=== PATIENT | male | born 1950 | race Caucasian/White ===

== ENCOUNTER 2023-01-18 11:07 | Outpatient (CLI) | payer MEDICARE, SELFPAY ==
[2023-01-18 12:00] LABS: Hematocrit 43.7 % (42.0-52.0); Hemoglobin 15.4 g/dL (14.0-18.0); Mean Corpuscular HGB Conc 35.2 g/dl (32-36); Mean Corpuscular Hemoglobin 32.2 pg (26-34); Mean Corpuscular Volume 91.4 fl (80-100); Mean Platelet Volume 9.2 fl (7.4-10.4); Platelet Count Result 251 k/mm3 (150-375); Red Blood Count 4.78 M/mm3 (4.6-6.20); Red Cell Distribution Width 13.4 % (11.5-14.5); White Blood Count 5.1 K/mm3 (4.5-10.0)
[2023-01-18 12:36] LABS: Appearance Urine Clear (Clear); Bilirubin Urine Negative (Negative); Blood Urine Negative (Negative); Color Urine Yellow (Yellow); Glucose Urine UA Negative (Negative); Ketones Urine Negative (Negative); Leukocyte Esterase Ur Negative LEU/UL (NEGATIVE); Nitrate Urine Negative (Negative); Protein Urine Negative (Negative); Specific Grav Ur 1.019 (1.001-1.035); pH Urine 7.5 (5.0-9.0)
[2023-01-18 12:48] LABS: Hemoglobin A1C 5.4 % (<5.7)
[2023-01-18 12:49] LABS: Add Urine Microscopic? NO
[2023-01-18 13:58] LABS: Alanine Aminotransferase 33 U/L (6-50); Albumin Level 4.4 g/dL (3.5-5.1); Alkaline Phosphatase 41 U/L (38-126); Anion Gap 6 mmol/L (8-16); Aspartate Amino Transferase 37 U/L (17-59); Bilirubin,Total 1.4 mg/dL (0.2-1.3); Blood Urea Nitrogen 20 mg/dL (9-20); Calcium 9.5 mg/dL (8.4-10.2); Carbon Dioxide 34 mmol/L (22-30); Chloride 97 mmol/L (98-107); Cholesterol 106 mg/dL (0-200); Estimated Glomerular Filt Rate > 60; Glucose 100 mg/dL (65-110); HDL Direct 31 mg/dL; Potassium 3.4 mmol/L (3.4-5.0); Sodium 137 mmol/L (137-145); Triglycerides 72 mg/dL (<150)
[2023-01-18 14:12] LABS: LDL Cholesterol Direct 59 mg/dL
[2023-01-18 14:29] LABS: Prostate Specific Antigen 0.6 ng/mL (< OR = 4.0); Thyroid Stimulating Hormone 0.735 uIU/mL (0.465-4.680)
== END 2023-01-18 11:08 | disposition home or self-care (01) ==
PROVIDERS: PCP Family Medicine; Visit Provider Family Medicine
DX: E78.5 Hyperlipidemia, unspecified (principal); I10 Essential (primary) hypertension; R35.1 Nocturia; R73.01 Impaired fasting glucose
CPT/HCPCS: 36415; 80053; 80061; 81003; 83036; 84153; 84443; 85027

== ENCOUNTER → 2023-01-24 11:43 | Outpatient (CLI) | payer MEDICARE, SELFPAY ==
--- NOTE | ~2023-01-24 | XR_ITS ---
Right Knee Technique: AP and lateral views were obtained. Clinical History: Pain Findings: No fracture or dislocation is seen. There is moderate degenerative change of the medial com partment. There is mild degenerative change at the lateral and patellofemoral compartments.. Chondroc alcinosis of the menisci noted. No joint effusion is seen. 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 Reviewed, dictated and finalized at location M. Impression: Tricompartmental osteoarthritis, as detailed above, worst in the medial compart ment. Chondrocalcinosis of the menisci.
== END ==
PROVIDERS: PCP Family Medicine; Visit Provider Family Medicine
DX: M17.11 Unilateral primary osteoarthritis, right knee (principal)
CPT/HCPCS: 73560

== ENCOUNTER 2024-01-26 07:50 | Outpatient (CLI) | payer MEDICARE, SELFPAY ==
[2024-01-26 08:35] LABS: Appearance Urine Clear (Clear); Bilirubin Urine Negative (Negative); Blood Urine Negative (Negative); Color Urine Yellow (Yellow); Glucose Urine UA Negative (Negative); Ketones Urine Negative (Negative); Leukocyte Esterase Ur Negative LEU/UL (Negative); Nitrate Urine Negative (Negative); Protein Urine Negative (Negative); Specific Grav Ur 1.016 (1.001-1.035); pH Urine 6.5 (5.0-9.0)
[2024-01-26 08:35] LABS: Hematocrit 45.1 % (42.0-52.0); Hemoglobin 16.3 g/dL (14.0-18.0); Mean Corpuscular HGB Conc 36.1 g/dl (32-36); Mean Corpuscular Hemoglobin 32.8 pg (26-34); Mean Corpuscular Volume 90.7 fl (80-100); Mean Platelet Volume 9.6 fl (7.4-10.4); Platelet Count Result 250 k/mm3 (150-375); Red Blood Count 4.97 M/mm3 (4.6-6.20); Red Cell Distribution Width 13.5 % (11.5-14.5); White Blood Count 5.5 K/mm3 (4.5-10.0)
[2024-01-26 08:36] LABS: Add Urine Microscopic? NO
[2024-01-26 08:43] LABS: Alanine Aminotransferase 31 U/L (6-50); Albumin Level 4.5 g/dL (3.5-5.1); Alkaline Phosphatase 47 U/L (38-126); Anion Gap 8 mmol/L (4-12); Aspartate Amino Transferase 33 U/L (17-59); Bilirubin,Total 1.3 mg/dL (0.2-1.3); Blood Urea Nitrogen 16 mg/dL (9-20); Calcium 9.5 mg/dL (8.4-10.2); Carbon Dioxide 29 mmol/L (22-30); Chloride 98 mmol/L (98-107); Cholesterol 116 mg/dL (0-200); Estimated Glomerular Filt Rate > 60; Glucose 99 mg/dL (65-110); HDL Direct 33 mg/dL; Potassium 3.2 mmol/L (3.4-5.0); Sodium 135 mmol/L (137-145); Triglycerides 106 mg/dL (<150)
[2024-01-26 08:55] LABS: LDL Cholesterol Direct 70 mg/dL
== END 2024-01-26 07:51 | disposition home or self-care (01) ==
PROVIDERS: PCP Family Medicine; Visit Provider Family Medicine
DX: E78.5 Hyperlipidemia, unspecified (principal); I10 Essential (primary) hypertension; R35.1 Nocturia
CPT/HCPCS: 36415; 80053; 80061; 81003; 84443; 85027

== ENCOUNTER 2024-10-01 09:54 | Outpatient (CLI) | payer MEDICARE, SELFPAY ==
[2024-10-01 12:35] LABS: Alanine Aminotransferase 34 U/L (6-50); Albumin Level 3.9 g/dL (3.5-5.1); Alkaline Phosphatase 46 U/L (38-126); Anion Gap 8 mmol/L (4-12); Aspartate Amino Transferase 34 U/L (17-59); Bilirubin,Total 0.9 mg/dL (0.2-1.3); Blood Urea Nitrogen 20 mg/dL (9-20); Calcium 9.5 mg/dL (8.4-10.2); Carbon Dioxide 32 mmol/L (22-30); Chloride 96 mmol/L (98-107); Estimated Glomerular Filt Rate > 60; Glucose 102 mg/dL (65-110); Potassium 3.6 mmol/L (3.4-5.0); Sodium 136 mmol/L (137-145)
--- OUTSIDE RECORDS SUMMARY | 2024-10-03 17:07 | XMS_ITS | Clinical Summary ---
Author Organization [facility] Address [address] [place] [address] Care Team Providers Care Company Controller Name Role Phone Unavailable Primary Care Provider Unavailabl e Source Comments [facility],non-owned Affiliates and Associated Physician Practices is amultiple site organization consisting of ambulatory clinics and hospital sitesin [place], [place], [place] and [place]. This disclosure is being madepursuant to the Care Everywhere program and may not contain all information available regarding this patient. Last updated 18.[facility] Family History Medical History Relation Name Comments Cancer Brother colon; Status: Relation Name Status Comments Brother Social History Tobacco Use Types Packs/Day Years Used Date Smoking Tobacco: Former Alcohol Use Standard Drinks/Week Comments Yes 0 (1 standard drink = 0.6 oz pur e alcohol) Sex and Gender Information Value Date Recorded Sex Assigned at Not on file Gender Identity Not on file Sexual Orientation Not on file Last Filed Vital Signs Vital Sign Reading Time Taken Comments Blood Pressure 146/89 03/26/2013 5:04 PM CDT Pulse 58 03/26/2013 5:04 PM CDT Temperature - - Respiratory Rate - - Oxygen Saturation 95% 03/26/2013 5:04 PM CDT Inhaled Oxygen Concentration - - Weight 83.9 kg (185 lb) 03/26/2013 8:52 AM CDT Height 180.3 cm (5' 11 ) 03/26/2013 8:52 AM CDT Body Mass Index 25.8 03/26/2013 8:52 AM CDT Plan of Treatment Health Maintenance Due Date Last Done Comments HEPATITIS C SCREENING 12/28/1965 DTAP/TDAP/TD VACCINES (1 - Tdap) 01/01/1967 PNEUMOCOCCAL VACCINE 50+ (1 of 1 - PCV) 01/01/1998 ZOSTER VACCINE (1 of 2) 01/01/1998 Respiratory Syncytial Virus (RSV) Vaccine Pt: or over 60 yrs (1 - 1-dose 75+ series) 01/01/2023 COVID-19 VACCINE (2023-2 5 season) 2024 INFLUENZA VACCINE (#1) 2024 DEPRESSION SCREENING 09/11/2024 MEDICARE AWV ? CALENDAR YEAR 2024 HEPATITIS B VACCINE Aged Out No longe r eligible based on patient's age to complete this topic HIB VACCINE Aged Out No longer eligi ble based on patient's age to complete this topic HPV VACCINE Aged Out No longer eligi ble based on patient's age to complete this topic MENINGOCOCCAL (Group B) VACCINE Aged Out No longer eligible based on patient's age to complete this topic MENINGOCOCCAL VACCINE Aged Out No luis armando temo eligible based on patient's age to complete this topic Timbo Crespo Personal/Famil y Self 1950 [address] [place] [id number]
--- OUTSIDE RECORDS SUMMARY | 2024-10-03 17:07 | XMS_ITS | Patient Health Summary ---
Author Organization [facility] Address [address] [place] [address] Care Team Providers Care Administrative Dietitian Name Role Phone Unavailable Primary Care Provider Unavailabl e Note from [facility],non-owned Affiliates and Associated Physician Practices is amultiple site organization consisting of ambulatory clinics and hospital sitesin [place], [place], [place] and [place]. This disclosure is being madepursuant to the Care Everywhere program and may not contain all information available regarding this patient. Last updated 18.[facility] [employer] Social History Tobacco Use Types Packs/Day Years [...] Mass Index 25.8 03/26/2013 8:52 AM CDT Procedures * DERMATOPATHOLOGY(Performed 01/16/2024) * DERMATOPATHOLOGY(Performed 07/06/2018) * DERMATOPATHOLOGY(Performed 09/23/2015) * DERMATOPATHOLOGY(Performed 01/04/2013) * DERMATOPATHOLOGY(Performed 03/21/2012) * DERMATOPATHOLOGY(Performed 01/12/2011) Results * DERMATOPATHOLOGY (01/16/2024 12:00 AM CDT) Only the most recent of6 resultswithin the time period is included. Case Report Dermatopathology Report ? Case: [id number] ? Authorizing Provider: ??Timbo Sanchez MD ?Collected: ? 01/16/2024 12:00 AM ? Ordering Location: ? [facility] - ??Received: ?01/18/2024 10:44 AM ? DermPath Lab ? Pathologist: ? Martha Griffith MD ? Specimens: ?? A) - Skin, left lateral frontal scalp ? B) - Skin, anterior to left sideburn ? C) - Skin, left mid exterior forearm ? 2:12 PM T DERMATOPATHOLOGY LABORATORY Final Diagnosis Specimen A. SKIN, left lateral frontal scalp: BASAL CELL CARCINOMA, NODULAR TYPE (C44.41) Specimen B. 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 SKIN, left mid exterior forearm: BENIGN VERRUCOUS KERATOSIS, INFLAMED (L82.1) 2:12 PM [facility] DERMATOPATHOLOGY LABORATORY Clinical History A: r/o SCC, BCC, SCCIS B-C: r/o SCC, SCCIS 2:12 PM [facility] DERMATOPATHOLOGY LABORATORY Gross Description Specimen A: Received is one formalin filled container labeled with the patient's name and designated left lateral frontal scalp. The specimen consists of a shave biopsy measuring 8x8x1 mm. Jar 0. Specimen B: Received is one formalin filled container labeled with the patient's name and designated anterior to left sideburn. The specimen consists of a shave biopsy measuring 6x5x1 mm. Jar 0. Specimen C: Received is one formalin filled container labeled with the patient's name and designated left mid exterior forearm. The specimen consists of a shave biopsy measuring 10x8x3 mm. Jar 0. 2:12 PM [facility] DERMATOPATHOLOGY LABORATORY Microscopic Description Specimen A. SKIN, left lateral frontal scalp: Within the dermis there are aggregates of basaloid cells with a high nuclear to cytoplasmic ratio and peripheral palisading. Specimen B. SKIN, anterior to left sideburn: There is focal parakeratosis. The lower half of the epidermis shows disorderly maturation of keratinocytes with nuclear pleomorphism. Focally there is a suprabasilar cleft with acantholytic cells. Specimen C. SKIN, left mid exterior forearm: Sections show hyperkeratosis, papillomatosis, hypergranulosis, and acanthosis. Inflammatory cells are present within the dermis. These histological findings can be seen in a verruca vulgaris or a seborrheic keratosis. 2:12 PM CDT DERMATOPATHOLOGY LABORATORY Disclaimer An external and internal positive and negative controls are appropriate for the histochemical, immunohistochemical and immunofluorescence stain(s) in this case (if any), except where stated explicitly. The performance characteristics of the stain(s) cited in this report were developed and its performance characteristic determined by the Dermatopathology Laboratory at [facility], directed by Dr. Tiki Griffith. These tests need not be, and therefore are not, approved by the [place] Food and Drug Administration. The tests are used for clinical purposes. Billing Codes Specimen Charges Stain Charges 51282 18345 44834 1 1 1 4 2:12 PM CDT DERMATOPATHOLOGY LABORATORY Embedded Images 2:12 PM CDT DERMATOPATHOLOGY LABORATORY Pathology/Cytology TISSUE SPECIMEN FROM SKIN / Unknown 01/16/2024 01/18/2024 10:44 AM CDT Miscellaneous samples (specimen) TISSUE SPECIMEN FROM SKIN / Unknown 01/16/2024 01/18/2024 10:44 AM CDT Miscellaneous samples (specimen) TISSUE SPECIMEN FROM SKIN / Unknown 01/16/2024 01/18/2024 10:44 AM CDT Timbo Sanchez MD LAB - PATHOLOGY/CYTO LOGY ORDERABLES DERMATOPATHOLOGY LABORATORY [facility] - Department of Dermatology [address], [address] [phone]
--- OUTSIDE RECORDS SUMMARY | 2024-10-03 17:07 | XMS_ITS | Encounter Summary ---
Author Organization [facility] Address [address] [facility] [place] [address] Care Team Providers Care Credit Cashier Name Role Phone Unavailable Primary Care Provider Unavailabl e Encounter Details Date Type Department Care Team (Late st Contact Info) Description 01/18/2024 Lab Requisition [facility] - DermPath Lab [address] [facility], [place] [address] Timbo Sanchez MD [address] [place] [address] Social History Tobacco Use Types Packs/Day Years Used Date Smoking Tobacco: Former Alcohol Use Standard Drinks/Week Comments Yes 0 (1 standard drink = 0.6 oz pur e alcohol) Sex and Gender Information Value Date Recorded Sex Assigned at Not on file Gender Identity Not on file Sexual Orientation Not on file documented as of this encounter Plan of Treatment Not on file documented as of this encounter Procedures Procedure Name Priority Date/Time Associated Diagnosis Comments DERMATOPATHOLOGY Routine 01/16/2024 12:0 0 AM CDT documented in this encounter Results * DERMATOPATHOLOGY (01/16/2024 12:00 AM CDT) Case Report Dermatopathology Report ? Case: [id number] ? Authorizing Provider: ??Timbo Sanchez MD ?Collected: ? 01/16/2024 12:00 AM ? Ordering Location: ? [facility] - ??Received: ?01/18/2024 10:44 AM ? DermPath Lab ? Pathologist: ? Martha Griffith MD ? Specimens: ?? A) - Skin, left lateral frontal scalp ? B) - Skin, anterior to left sideburn ? C) - Skin, left mid exterior forearm ? 4 2:12 PM CDT DERMATOPATHOLOGY LABORATORY Final Diagnosis Specimen A. SKIN, left lateral frontal scalp: BASAL CELL CARCINOMA, NODULAR TYPE (C44.41) Specimen B. 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 SKIN, left mid exterior forearm: BENIGN VERRUCOUS KERATOSIS, INFLAMED (L82.1) 2:12 PM [facility] Clinical History A: r/o SCC, BCC, SCCIS B-C: r/o SCC, SCCIS 2:12 PM [facility]ATORY Gross Description Specimen A: Received [...] measuring 10x8x3 mm. Jar 0. 2:12 PM T DERMATOPATHOLOGY LABORATORY Microscopic Description Specimen A. SKIN, [...] vulgaris or a seborrheic keratosis. 2:12 PM [facility]ATORY Disclaimer An external and internal positive and negative controls are appropriate for the histochemical, immunohistochemical and immunofluorescence stain(s) in this case (if any), except where stated explicitly. The performance characteristics of the stain(s) cited in this report were developed and its performance characteristic determined by the Dermatopathology Laboratory at [facility], directed by Dr. Tiki Griffith. These tests need not be, and therefore are not, approved by the [place] Food and Drug Administration. The tests are used for clinical purposes. Billing Codes Specimen Charges Stain Charges 59009 62139 98223 1 1 1 4 2:12 PM CDT [...] LAB - PATHOLOGY/CYTO LOGY ORDERABLES DERMATOPATHOLOGY LABORATORY [facility] - Department of Dermatology [address], [address] [phone] documented in this encounter Visit Diagnoses Not on filedocumented in this encounter
--- OUTSIDE RECORDS SUMMARY | 2024-10-03 17:07 | XMS_ITS | Encounter Summary ---
Author Organization [facility] Address [address] [facility] [place] [address] Care Team Providers Care Ticker Wirer Name Role Phone Unavailable Primary Care Provider Unavailabl e Encounter Details Date Type Department Care Team (Late st Contact Info) Description 07/09/2018 Lab Requisition [facility] D[facility] [address] [facility], [place] [address] Timbo Sanchez MD [address] [place] [address] Social History Tobacco Use Types [...] Priority Date/Time Associated Diagnosis Comments DERMATOPATHOLOGY Routine 07/06/2018 12:0 0 AM CDT documented in this encounter Results * DERMATOPATHOLOGY (07/06/2018 12:00 AM CDT) Case Report Dermatopathology Report ? Case: [id number] ? Authorizing Provider: ??Timbo Sanchez MD ?Collected: ? 07/06/2018 12:00 AM ? Pathologist: ? Martha Griffith MD ? Received: ?07/09/2018 12:05 PM ? Specimen: ?Skin, sacrum ? 2:04 PM CDT DERMATOPATHOLOGY LABORATORY Final Diagnosis Specimen A. SKIN, sacrum: LENTIGINOUS MELANOCYTIC NEVUS, JUNCTIONAL TYPE, IRRITATED (JUNCTIONAL MELANOCYTIC NEVUS WITH ARCHITECTURAL DISORDER) (D22.5) 2:04 PM CDT DERMATOPATHOLOGY LABORATORY Clinical History R/O dys nevus. 2:04 PM CDT DERMATOPATHOLOGY LABORATORY Gross Description Specimen A: Received is one formalin filled container labeled with the patient's name and designated sacrum. The specimen consists of a shave biopsy measuring [id number]. Jar 0. 2:04 PM CDT DERMATOPATHOLOGY LABORATORY Microscopic Description Specimen A. SKIN, sacrum: This is a junctional nevus. There is melanin pigment in the stratum corneum. There is architectural disorder characterized by a lentiginous proliferation of melanocytes between irregular nests of cells along the dermal-epidermal junction. There is underlying fibroplasia of the papillary dermis. (Junctional Joao's Nevus or Junctional Dysplastic Nevus) 2:04 PM CDT DERMATOPATHOLOGY LABORATORY Disclaimer An external and internal positive and negative controls are appropriate for the histochemical, immunohistochemical and immunofluorescence stain(s) in this case (if any), except where stated explicitly. The performance characteristics of the stain(s) cited in this report were developed and its performance characteristic determined by the Dermatopathology Laboratory at [facility]. These tests need not be, and therefore are not, approved by the [place] Food and Drug Administration. The tests are used for clinical purposes. Billing Codes Specimen Charges Stain Charges 77183 1 8 2:04 PM CDT DERMATOPATHOLOGY LABORATORY Embedded Images 8 2:04 PM CDT DERMATOPATHOLOGY LABORATORY Pathology/Cytolog y TISSUE SPECIMEN FROM SKIN / Unknown 07/06/2018 07/09/2018 12:05 PM CDT Timbo Sanchez MD LAB - PATHOLOGY/CYTO LOGY ORDERABLES DERMATOPATHOLOGY LABORATORY [facility] - Department of Dermatology [address] [place] [address], 5th Floor Lab [address] [phone] documented in this encounter Visit Diagnoses Not on filedocumented in this encounter
--- OUTSIDE RECORDS SUMMARY | 2024-10-03 17:07 | XMS_ITS | Clinical Summary ---
Author Organization [facility] Address [address] [place] [address]. [place], [place] [address] [place] [address] Care Team Providers Care Seed Corn Manager Production Name Role Phone Unavailable Primary Care Provider Unavailabl e Social History Tobacco Use Types Packs/Day Years Used Date Smoking Tobacco: Never Sex and Gender Information Value Date Recorded Sex Assigned at Not on file Legal Sex Male 5:54 PM CDT Gender Identity Not on file Sexual Orientation Not on file Last Filed Vital Signs Vital Sign Reading Time Taken Comments Blood Pressure 158/100 01/11/2012 3:41 PM CDT Pulse 72 01/11/2012 3:40 PM CDT Regul ar Temperature - - Respiratory Rate 18 01/11/2012 3:40 PM CDT R egular Oxygen Saturation - - Inhaled Oxygen Concentration - - Weight 91.6 kg (202 lb) 01/11/2012 3:40 PM CDT Height 177.8 cm (5' 10 ) 01/11/2012 3:40 PM CDT Body Mass Index 28.98 01/11/2012 3:40 PM CDT Plan of Treatment Health Maintenance Due Date Last Done Comments Hepatitis C 01/01/1966 DTaP, Tdap and Td Vaccines ( 1 - Tdap) 01/01/1967 Zoster Vaccines (1 of 2) 01/01/1998 Pneumococcal Vaccine: 65+ Ye ars (1 of 1 - PCV) 01/01/2013 RSV Immunization or 60+ Years (1 - 1-dose 75+ series) 01/01/2023 COVID-19 Vaccine ( - 2023-2 5 season) 2024 Influenza Adult (#1) 2024 Meningococcal B Vaccine Aged Out No l onger eligible based on patient's age to complete this topic Meningococcal Vaccine Aged Out No luis armando temo eligible based on patient's age to complete this topic RSV Immunizations Under 20 Months Aged Out No longer eligible based on patient's age to complete this topic
--- OUTSIDE RECORDS SUMMARY | 2024-10-03 17:07 | XMS_ITS | Referral Summary ---
Author Organization [facility] Address [address] [address] Care Team Providers Care Refrigeration Installer Name Role Phone Unavailable Primary Care Provider Unavailabl e Source Comments [facility],non-owned Affiliates and Associated Physician Practices is amultiple site organization consisting of ambulatory clinics and hospital sitesin [place], [place], [place] and [place]. This disclosure is being madepursuant to the Care Everywhere program and may not contain all information available regarding this patient. Last updated 18.[facility] [employer] Social History Tobacco Use Types Packs/Day Years [...] 03/26/2013 8:52 AM CDT Plan of Treatment Not on file Timbo Crespo Personal/Famil y Self 1950 [address] [place] [id number]
== END 2024-10-01 09:55 | disposition home or self-care (01) ==
PROVIDERS: PCP Family Medicine; Visit Provider Family Medicine
DX: I10 Essential (primary) hypertension (principal)
CPT/HCPCS: 36415; 80053

== ENCOUNTER 2025-04-02 09:13 | Outpatient (CLI) | payer MEDICARE, SELFPAY ==
--- OUTSIDE RECORDS SUMMARY | 2025-04-02 09:27 | XMS_ITS | Clinical Summary ---
Author Organization [facility] [employer] Address [address] [place] [address] Care Team Providers Care Well Surveying Engineer Name Role Phone Unavailable Primary Care Provider Unavailabl e Source Comments [facility] [employer],non-owned Affiliates and Associated Physician Practices is amultiple site organization consisting of ambulatory clinics and hospital sitesin [place], [place] and [place]. This disclosure is being madepursuant to the Care Everywhere program and may not contain all information available regarding this patient. Last updated 18.[facility] [employer] Family History Medical History Relation Name Comments Cancer Brother colon; Status: Relation Name Status Comments Brother Social History Tobacco Use Types Packs/Day Years Used Date Smoking Tobacco: Former Alcohol Use Standard Drinks/Week Comments Yes 0 (1 standard drink = 0.6 oz pur e alcohol) Sex and Gender Information Value Date Recorded Sex Assigned at Not on file Legal Sex Male 6:05 PM COMMERCIAL CENSUS TAKER Gender Identity Not on file Sexual Orientation [...] 8:52 AM CDT Height 180.3 cm (5' 11) 03/26/2013 8:52 AM CDT Body Mass Index [...] - 1-dose 75+ series) 01/01/2023 COVID-19 VACCINE (1 - 2023-2 5 season) 2024 DEPRESSION SCREENING 09/11/2024 MEDICARE AWV CALENDAR YEAR 2024 INFLUENZA VACCINE (#1) 2025 HEPATITIS B VACCINE Aged Out No longe r eligible based on patient's age to complete this topic HIB VACCINE Aged Out No longer eligi ble based on patient's age to complete this topic HPV VACCINE Aged Out No longer eligi ble based on patient's age to complete this topic MENINGOCOCCAL (Group B) VACC INE SHARED DECISION-MAKING Aged Out No longer eligibl e based on patient's age to complete this topic MENINGOCOCCAL GROUPS A/C/Y/W VACCINE Aged Out No longer eligible b ased on patient's age to complete this topic Insurance [facility] [employer] MEDICARE ADV
--- OUTSIDE RECORDS SUMMARY | 2025-04-02 09:27 | XMS_ITS | Encounter Summary ---
Author Organization [facility] Address [address] [facility] [place] [address] Care Team Providers Care Retail Sales Vitamin Consultant Name Role Phone Unavailable Primary Care Provider Unavailabl e Encounter Details Date Type Department Care Team (Late st Contact Info) Description 10/08/2024 Lab Requisition [facility] - DermPath Lab [address] [facility] [place] [id number] Joi Hatch MD [address] [place] [address] Social History Tobacco Use Types Packs/Day Years Used Date Smoking Tobacco: Former Alcohol Use Standard Drinks/Week Comments Yes 0 (1 standard drink = 0.6 oz pur e alcohol) Sex and Gender Information Value Date Recorded Sex Assigned at Not on file Legal Sex Male 6:05 PM PROGRAMMING MANAGER Gender Identity Not on file Sexual Orientation Not on file documented as of this encounter Plan of Treatment Not on file documented as of this encounter Procedures Procedure Name Priority Date/Time Associated Diagnosis Comments DERMATOPATHOLOGY Routine 10/08/2024 3:01 PM PROGRAMMING MANAGER documented in this encounter Results * DERMATOPATHOLOGY (10/08/2024 3:01 PM PROGRAMMING MANAGER) Case Report Dermatopathology Report Case: [id number] Authorizing Provider: Joi Hatch MD Collected: 10/08/2024 03:01 PM Ordering Location: [facility] - Received: 10/09/2024 12:48 PM DermPath Lab Pathologist: Brittny Oliva MD Specimens: A) - Skin, post neck B) - Skin, left arm 2:12 PM PROGRAMMING MANAGER DERMATOPATHOLOGY LABORATORY Final Diagnosis Specimen A. SKIN, post neck: BASAL CELL CARCINOMA, NODULAR TYPE (C44.41) Specimen B. SKIN, left arm: HYPERPLASTIC (HYPERTROPHIC) ACTINIC KERATOSIS, PIGMENTED (L57.0) (see microscopic description) 2:12 PM [facility] DERMATOPATHOLOGY LABORATORY at 1412 PROGRAMMING MANAGER Clinical History A: R/O BCC B: Nevus R/O MM 2:12 PM [facility] DERMATOPATHOLOGY LABORATORY Gross Description Specimen A: Received is one formalin filled container labeled with the patient's name and designated post neck. The specimen consists of a shave biopsy measuring 9x7x1 mm. Jar 0. Specimen B: Received is one formalin filled container labeled with the patient's name and designated left arm. The specimen consists of a shave biopsy measuring 11x9x1 mm. Jar 0. 2:12 PM [facility] DERMATOPATHOLOGY LABORATORY Microscopic Description Specimen A. SKIN, post neck: Within the dermis there are aggregates of basaloid cells with a high nuclear to cytoplasmic ratio and peripheral palisading. Specimen B. SKIN, left arm: There is hyperkeratosis alternating with parakeratosis. There is epidermal hyperplasia with disorderly maturation of keratinocytes with nuclear pleomorphism confined to the lower half of the epidermis. There is prominent pigmentation in some of the keratinocytes. 2:12 PM [facility] DERMATOPATHOLOGY LABORATORY Disclaimer An external and internal positive and negative controls are appropriate for the histochemical, immunohistochemical and immunofluorescence stain(s) in this case (if any), except where stated explicitly. The performance characteristics of the stain(s) cited in this report were developed and its performance characteristic determined by the Dermatopathology Laboratory at [facility], directed by Dr. Tiki Griffith. These tests need not be, and therefore are not, approved by the [place] Food and Drug Administration. The tests are used for clinical purposes. Billing Codes Specimen Charges Stain Charges 90946 61563 1 1 2:12 PM [facility] DERMATOPATHOLOGY LABORATORY Embedded Images 2:12 PM [facility] DERMATOPATHOLOGY LABORATORY Pathology/Cytology TISSUE SPECIMEN FROM SKIN / Unknown 10/08/2024 3:01 PM PROGRAMMING MANAGER 10/09/2024 12:48 PM PROGRAMMING MANAGER Miscellaneous samples (specimen) TISSUE SPECIMEN FROM SKIN / Unknown 10/08/2024 3:01 PM PROGRAMMING MANAGER 10/09/2024 12:48 PM PROGRAMMING MANAGER us Joi Hatch MD LAB - PATHOLOGY/CYTOLOGY ORD ERABLES Final Result DERMATOPATHOLOGY LABORATORY [facility] - Department of Dermatology [facility] [address] [place] [address], [address] [phone] documented in this encounter Visit Diagnoses Not on filedocumented in this encounter
--- OUTSIDE RECORDS SUMMARY | 2025-04-02 09:27 | XMS_ITS | Encounter Summary ---
Author Organization [facility] Health Address [address] [place] [address] Care Team Providers Care Transaction Processor Name Role Phone Unavailable Primary Care Provider Unavailabl e Encounter Details Date Type Department Care Team (Late st Contact Info) Description 11/05/2024 Lab Requisition [facility] - DermPath Lab [address] [facility], [place] [address] Joi Hatch MD [address] [facility] [address] [place] [address] Social History Tobacco Use Types Packs/Day Years Used Date Smoking Tobacco: Former Alcohol Use Standard Drinks/Week Comments Yes 0 (1 standard drink = 0.6 oz pur e alcohol) Sex and Gender Information Value Date Recorded Sex Assigned at Not on file Legal Sex Male 6:05 PM RUG SETTER VELVET Gender Identity Not on file Sexual Orientation Not on file documented as of this encounter Plan of Treatment Not on file documented as of this encounter Procedures Procedure Name Priority Date/Time Associated Diagnosis Comments DERMATOPATHOLOGY Routine 11/05/2024 3:13 PM RUG SETTER VELVET documented in this encounter Results * DERMATOPATHOLOGY (11/05/2024 3:13 PM RUG SETTER VELVET) Case Report Dermatopathology Report Case: [id number] Authorizing Provider: Joi Hatch MD Collected: 11/05/2024 03:13 PM Ordering Location: [facility] - Received: 11/06/2024 04:33 PM DermPath Lab Pathologist: Carlie Oliva MD Specimen: Skin, posterior neck 12:09 PM RUG SETTER VELVET DERMATOPATHOLOGY LABORATORY Final Diagnosis Specimen A. SKIN, posterior neck: DERMAL SCAR RESIDUAL BASAL CELL CARCINOMA NOT IDENTIFIED (L90.5) ACTINIC KERATOSIS, PIGMENTED. PRESENT AT LATERAL MARGIN (L57.0) 12:09 PM [facility] DERMATOPATHOLOGY LABORATORY at 1209 RUG SETTER VELVET Clinical History Bx proven BCC. Check margins/prior biopsy 12:09 PM [facility] DERMATOPATHOLOGY LABORATORY Gross Description Specimen A: Received is one formalin filled container labeled with the patient's name and designated posterior neck.The specimen consists of an ellipse measuring [id number] mm and is oriented with the notch at the 12 o'clock position labeled on the requisition as notch. The 12 to 6 o'clock margin is inked green. The 6 o'clock to 12 o'clock margin is inked red. The 12 o'clock tip is submitted in cassette 1. The 6 o'clock tip is submitted in cassette 2. The remainder of the ellipse is serially sectioned and submitted in cassettes 3-4. Jar 0. 12:09 PM [facility] DERMATOPATHOLOGY LABORATORY Microscopic Description Specimen A. SKIN, posterior neck: There are fibroblasts and collagen bundles oriented parallel to the skin surface. There are elongated blood vessels, some of which are oriented perpendicular to the skin surface. No basal cell carcinoma is identified. Additionally, there is alternating orthokeratosis and parakeratosis. Along the undersurface of the epidermis, there are buds of atypical keratinocytes in a disorderly arrangement. There is prominent pigmentation in some of the keratinocytes. This lesion is present at the lateral margin of the specimen. 12:09 PM [facility] DERMATOPATHOLOGY LABORATORY Disclaimer An external and internal positive and negative controls are appropriate for the histochemical, immunohistochemical and immunofluorescence stain(s) in this case (if any), except where stated explicitly. The performance characteristics of the stain(s) cited in this report were developed and its performance characteristic determined by the Dermatopathology Laboratory at [facility], directed by Dr. Tiki Griffith. These tests need not be, and therefore are not, approved by the [place] Food and Drug Administration. The tests are used for clinical purposes. Billing Codes Specimen Charges Stain Charges 45930 1 12:09 PM [facility] DERMATOPATHOLOGY LABORATORY Embedded Images 12:09 PM RUG SETTER VELVET DERMATOPATHOLOGY LABORATORY Pathology/Cytolo gy TISSUE SPECIMEN FROM SKIN / Unknown 11/05/2024 3:13 PM RUG SETTER VELVET 11/06/2024 4:33 PM RUG SETTER VELVET us Joi Hatch MD LAB - PATHOLOGY/CYTOLOGY ORD ERABLES Final Result DERMATOPATHOLOGY LABORATORY [facility] - Department of Dermatology [facility]ized Medicine [address] [place] [address], [address] [phone] documented in this encounter Visit Diagnoses Not on filedocumented in this encounter
--- OUTSIDE RECORDS SUMMARY | 2025-04-02 09:27 | XMS_ITS | Encounter Summary ---
Author Organization [facility] Health Address [address] [facility] [place] [address] Care Team Providers Care Feather Boner Name Role Phone Unavailable Primary Care Provider Unavailabl e Encounter Details Date Type Department Care Team (Late st Contact Info) Description 07/09/2018 Lab Requisition [facility] Care DermPath Lab [address] [facility], [place] [address] Timbo Sanchez MD [address] [place] [address] Social History Tobacco Use Types Packs/Day Years Used Date Smoking Tobacco: Former Alcohol Use Standard Drinks/Week Comments Yes 0 (1 standard drink = 0.6 oz pur e alcohol) Sex and Gender Information Value Date Recorded Sex Assigned at Not on file Legal Sex Male 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 Gender Identity Not on file Sexual Orientation Not on file documented as of this encounter Plan of Treatment Not on file documented as of this encounter Procedures Procedure Name Priority Date/Time Associated Diagnosis Comments DERMATOPATHOLOGY Routine 07/06/2018 12:0 0 AM CDT documented in this encounter Results * DERMATOPATHOLOGY (07/06/2018 12:00 AM CDT) Case Report Dermatopathology Report Case: [id number] Authorizing Provider: Timbo Sanchez MD Collected: 07/06/2018 12:00 AM Pathologist: Martha Griffith MD Received: 07/09/2018 12:05 PM Specimen: Skin, sacrum 8 2:04 PM CDT DERMATOPATHOLOGY LABORATORY Final Diagnosis Specimen A. SKIN, sacrum: LENTIGINOUS MELANOCYTIC NEVUS, JUNCTIONAL TYPE, IRRITATED (JUNCTIONAL MELANOCYTIC NEVUS WITH ARCHITECTURAL DISORDER) (D22.5) 2:04 PM CDT DERMATOPATHOLOGY LABORATORY at 1404 CDT Clinical History R/O dys nevus. 2:04 PM CDT DERMATOPATHOLOGY LABORATORY Gross Description Specimen A: Received is one formalin filled container labeled with the patient's name and designated sacrum. The specimen consists of a shave biopsy measuring [id number]. Jar 0. 2:04 PM CDT DERMATOPATHOLOGY LABORATORY [...] characteristic determined by the Dermatopathology Laboratory at [facility]. These tests need not be, and therefore are not, approved by the [place] Food and Drug Administration. The tests are used for clinical purposes. Billing Codes Specimen Charges Stain Charges 07309 1 2:04 PM CDT DERMATOPATHOLOGY LABORATORY Embedded Images 2:04 PM CDT DERMATOPATHOLOGY LABORATORY Pathology/Cytolog y TISSUE SPECIMEN FROM SKIN / Unknown 07/06/2018 07/09/2018 12:05 PM CDT Timbo Sanchez MD LAB - PATHOLOGY/CYTOLOGY ORD ERABLES Final Result DERMATOPATHOLOGY LABORATORY [facility] - Department of Dermatology [address] [place] [address], 5th [place] [address], [facility] [phone] documented in this encounter Visit Diagnoses Not on filedocumented in this encounter
--- OUTSIDE RECORDS SUMMARY | 2025-04-02 09:27 | XMS_ITS | Encounter Summary ---
Author Organization [facility] Health Address [address] [facility] [place] [address] Care Team Providers Care Cost Recorder Name Role Phone Unavailable Primary Care Provider Unavailabl e Encounter Details Date Type Department Care Team (Late st Contact Info) Description 01/18/2024 Lab Requisition [facility] - DermPath Lab [address] [facility] [place] [address] Timbo Sanchez MD [address] [place] [address] Social History Tobacco Use Types Packs/Day Years Used Date Smoking Tobacco: Former Alcohol Use Standard Drinks/Week Comments Yes 0 (1 standard drink = 0.6 oz pur e alcohol) Sex and Gender Information Value Date Recorded Sex Assigned at Not on file Legal Sex Male 6:05 PM DIRECTOR OF CONSERVATION Gender Identity Not on file Sexual Orientation Not on file documented as of this encounter Plan of Treatment Not on file documented as of this encounter Procedures Procedure Name Priority Date/Time Associated Diagnosis Comments DERMATOPATHOLOGY Routine 01/16/2024 12:0 0 AM CDT documented in this encounter Results * DERMATOPATHOLOGY (01/16/2024 12:00 AM CDT) Case Report Dermatopathology Report Case: [id number] Authorizing Provider: Timbo Sanchez MD Collected: 01/16/2024 12:00 AM Ordering Location: [facility] Physician [facility] - Received: 01/18/2024 10:44 AM DermPath Lab Pathologist: Martha Griffith MD Specimens: A) - Skin, left lateral frontal scalp B) - Skin, anterior to left sideburn C) - Skin, left mid exterior forearm 2:12 PM CDT DERMATOPATHOLOGY LABORATORY Final Diagnosis Specimen A. SKIN, left lateral frontal scalp: BASAL CELL CARCINOMA, NODULAR TYPE (C44.41) Specimen B. 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 SKIN, left mid exterior forearm: BENIGN VERRUCOUS KERATOSIS, INFLAMED (L82.1) 2:12 PM T DERMATOPATHOLOGY LABORATORY at 1412 CDT Clinical History A: r/o SCC, BCC, SCCIS B-C: r/o SCC, SCCIS 2:12 PM CDT DERMATOPATHOLOGY LABORATORY Gross Description Specimen [...] measuring 10x8x3 mm. Jar 0. 2:12 PM CDT DERMATOPATHOLOGY LABORATORY Microscopic Description Specimen [...] determined by the Dermatopathology Laboratory at [facility], directed by Dr. Tiki Griffith. These tests need not be, and therefore are not, approved by the [place] Food and Drug Administration. The tests are used for clinical purposes. Billing Codes Specimen Charges Stain Charges 72355 85318 37290 1 1 1 4 2:12 PM CDT DERMATOPATHOLOGY LABORATORY Embedded Images 2:12 PM CDT DERMATOPATHOLOGY LABORATORY Pathology/Cytology TISSUE SPECIMEN FROM SKIN / Unknown 01/16/2024 01/18/2024 10:44 AM CDT Miscellaneous samples (specimen) TISSUE SPECIMEN FROM SKIN / Unknown 01/16/2024 01/18/2024 10:44 AM CDT Miscellaneous samples (specimen) TISSUE SPECIMEN FROM SKIN / Unknown 01/16/2024 01/18/2024 10:44 AM CDT us Timbo Sanchez MD LAB - PATHOLOGY/CYTOLOGY ORD ERABLES Final Result DERMATOPATHOLOGY LABORATORY [facility] - Department of Dermatology [address], [address] [phone] documented in this encounter Visit Diagnoses Not on filedocumented in this encounter
[2025-04-02 10:39] LABS: Hematocrit 44.3 % (42.0-52.0); Hemoglobin 15.7 g/dL (14.0-18.0); Mean Corpuscular HGB Conc 35.4 g/dl (32-36); Mean Corpuscular Hemoglobin 31.8 pg (26-34); Mean Corpuscular Volume 89.9 fl (80-100); Platelet Count Result 252 k/mm3 (150-375); Red Blood Count 4.93 M/mm3 (4.6-6.20); White Blood Count 5.6 K/mm3 (4.5-10.0)
[2025-04-02 10:53] LABS: Hemoglobin A1C 5.6 % (<5.7)
[2025-04-02 11:21] LABS: Alanine Aminotransferase 29 U/L (6-50); Albumin Level 4.2 g/dL (3.5-5.1); Alkaline Phosphatase 42 U/L (38-126); Anion Gap 8 mmol/L (4-12); Aspartate Amino Transferase 35 U/L (17-59); Bilirubin,Total 1.2 mg/dL (0.2-1.3); Blood Urea Nitrogen 13 mg/dL (9-20); Calcium 9.6 mg/dL (8.4-10.2); Carbon Dioxide 28 mmol/L (22-30); Chloride 97 mmol/L (98-107); Cholesterol 128 mg/dL (0-200); Estimated Glomerular Filt Rate > 60; Glucose 94 mg/dL (65-110); HDL Direct 36 mg/dL; Potassium 3.2 mmol/L (3.4-5.0); Sodium 133 mmol/L (137-145); Total Protein 6.9 g/dL (6.3-8.2); Triglycerides 93 mg/dL (<150)
[2025-04-02 11:53] LABS: Thyroid Stimulating Hormone 1.550 uIU/mL (0.465-4.680)
== END 2025-04-02 09:14 | disposition home or self-care (01) ==
PROVIDERS: PCP Family Medicine; Visit Provider Physician Assistant Medical
DX: I10 Essential (primary) hypertension (principal); Z00.00 Encounter for general adult medical examination without abnormal findings; E78.5 Hyperlipidemia, unspecified; R73.01 Impaired fasting glucose
CPT/HCPCS: 36415; 80053; 80061; 83036; 84443; 85027

== ENCOUNTER 2025-05-26 14:24 | Outpatient (CLI) | payer MEDICARE, SELFPAY ==
--- NOTE | ~2025-05-26 | CT_ITS ---
EXAMINATION: CT pelvis wo con COMPARISON: None HISTORY: M53.3 - Sacrococcygeal disorders, not elsewhere classified TECHNIQUE: Axial images were obtained without IV contrast. Sagittal, coronal reconstruction images were obtained from the axial views. CT scan performed using dose optimization techniques including the following automated exposure control; adjustment of mA and/or kV; use of iterative reconstruction technique. Automatic exposure control was used to reduce radiation dose. Permanent radiation dose record is archived to PACS. FINDINGS: Moderate degenerative changes of the visualized lumbar spine and sacroiliac joints bilaterally. Minimal degenerative changes of the symphysis pubis and acetabular femoral joints bilaterally with narrowing of the joint space and osteophytosis. There is no fracture or dislocation identified. There is no avascular necrosis appreciated. No gross erosions noted of the sacroiliac joints with bridging osteophyte formation. No joint effusions are appreciated Soft tissues demonstrate small bilateral fat-containing inguinal hernia. The intrapelvic soft tissues are unremarkable. There is no subcutaneous fluid collection or intramuscular hemorrhage identified. IMPRESSION: Degenerative changes detailed above. If pain persists MRI is suggested Reviewed, dictated and finalized at location A. IMPRESSION: Degenerative changes detailed above. If pain persists MRI is sugges susy
--- OUTSIDE RECORDS SUMMARY | 2025-05-26 17:21 | XMS_ITS | Encounter Summary ---
Author Organization [facility] Health Address [address] [facility] [place] [address] Care Team Providers Care Forms Examiner Name Role Phone Unavailable Primary Care Provider Unavailabl e Encounter Details Date Type Department Care Team (Late st Contact Info) Description 01/18/2024 Lab Requisition [facility] - DermPath Lab [address] [facility] [place] [address] Timbo Sanchez MD [address] [place] [address] Social History Tobacco Use Types Packs/Day Years Used Date Smoking Tobacco: Former Alcohol Use Standard Drinks/Week Comments Yes 0 (1 standard drink = 0.6 oz pur e alcohol) Sex and Gender Information Value Date Recorded Sex Assigned at Not on file Legal Sex Male 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 Gender Identity Not on file Sexual Orientation Not on file documented as of this encounter Plan of Treatment Not on file documented as of this encounter Procedures Procedure Name Priority Date/Time Associated Diagnosis Comments DERMATOPATHOLOGY Routine 01/16/2024 12:0 0 AM CDT documented in this encounter Results * DERMATOPATHOLOGY (01/16/2024 12:00 AM CDT) Case Report Dermatopathology Report Case: [id number] Authorizing Provider: Timbo Sanchez MD Collected: 01/16/2024 12:00 AM Ordering Location: [facility] Physician [facility] - Received: 01/18/2024 10:44 AM DermPath Lab [...] characteristic determined by the Dermatopathology Laboratory at [facility], directed by Dr. Tiki Griffith. These tests need not be, and therefore are not, approved by the [place] Food and Drug Administration. The tests are used for clinical purposes. Billing Codes Specimen Charges Stain Charges 41918 99462 52283 1 1 1 4 2:12 PM CDT [...] PATHOLOGY/CYTOLOGY ORD ERABLES Final Result DERMATOPATHOLOGY LABORATORY [facility] - Department of Dermatology [address], [address] Floor [address] [phone] documented in this encounter Visit Diagnoses Not on filedocumented in this encounter
--- OUTSIDE RECORDS SUMMARY | 2025-05-26 17:21 | XMS_ITS | Encounter Summary ---
Author Organization [facility] Health Address [address] [facility] [place] [address] Care Team Providers Care Electronics Supervisor Name Role Phone Unavailable Primary Care Provider Unavailabl e Encounter Details Date Type Department Care Team (Late st Contact Info) Description 11/05/2024 Lab Requisition [facility] - DermPath Lab [address] [facility], [place] [address] Joi Hatch MD [address] [facility] 3 [place] [address] Social History Tobacco Use Types Packs/Day Years Used Date Smoking Tobacco: Former Alcohol Use Standard Drinks/Week Comments Yes 0 (1 standard drink = 0.6 oz pur e alcohol) Sex and Gender Information Value Date Recorded Sex Assigned at Not on file Legal Sex Male 6:05 PM COMMUNITY LIAISON OFFICER Gender Identity Not on file Sexual Orientation Not on file documented as of this encounter Plan of Treatment Not on file documented as of this encounter Procedures Procedure Name Priority Date/Time Associated Diagnosis Comments DERMATOPATHOLOGY Routine 11/05/2024 3:13 PM COMMUNITY LIAISON OFFICER documented in this encounter Results * DERMATOPATHOLOGY (11/05/2024 3:13 PM COMMUNITY LIAISON OFFICER) Case Report Dermatopathology Report Case: [id number] Authorizing Provider: Joi Hatch MD Collected: 11/05/2024 03:13 PM Ordering Location: [facility] - Received: 11/06/2024 04:33 PM DermPath Lab Pathologist: Carlie Oliva MD Specimen: Skin, posterior neck 12:09 PM COMMUNITY LIAISON OFFICER DERMATOPATHOLOGY LABORATORY Final Diagnosis Specimen A. SKIN, posterior neck: DERMAL SCAR RESIDUAL BASAL CELL CARCINOMA NOT IDENTIFIED (L90.5) ACTINIC KERATOSIS, PIGMENTED. PRESENT AT LATERAL MARGIN (L57.0) 12:09 PM [facility] DERMATOPATHOLOGY LABORATORY at 1209 COMMUNITY LIAISON OFFICER Clinical History Bx proven BCC. Check margins/prior biopsy 12:09 PM [facility] DERMATOPATHOLOGY LABORATORY Gross Description Specimen A: Received is one formalin filled container labeled with the patient's name and designated posterior neck.The specimen consists of an ellipse measuring 80i34n4 mm and is oriented with the notch [...] in cassettes 3-4. Jar 0. 12:09 PM [facility] DERMATOPATHOLOGY LABORATORY Microscopic Description [...] lateral margin of the specimen. 12:09 PM [facility] DERMATOPATHOLOGY LABORATORY Disclaimer An external and internal positive and negative controls are appropriate for the histochemical, immunohistochemical and immunofluorescence stain(s) in this case (if any), except where stated explicitly. The performance characteristics of the stain(s) cited in this report were developed and its performance characteristic determined by the Dermatopathology Laboratory at [facility], directed by Dr. Tiki Griffith. These tests need not be, and therefore are not, approved by the [place] Food and Drug Administration. The tests are used for clinical purposes. Billing Codes Specimen Charges Stain Charges 45673 1 12:09 PM [facility] DERMATOPATHOLOGY LABORATORY Embedded Images 12:09 PM COMMUNITY LIAISON OFFICER DERMATOPATHOLOGY LABORATORY Pathology/Cytolo gy TISSUE SPECIMEN FROM SKIN / Unknown 11/05/2024 3:13 PM COMMUNITY LIAISON OFFICER 11/06/2024 4:33 PM COMMUNITY LIAISON OFFICER us Joi Hatch MD LAB - PATHOLOGY/CYTOLOGY ORD ERABLES Final Result DERMATOPATHOLOGY LABORATORY [facility] - Department of Dermatology [facility] Specialized Medicine [address] [place] [address], [address] [phone] documented in this encounter Visit Diagnoses Not on filedocumented in this encounter
--- OUTSIDE RECORDS SUMMARY | 2025-05-26 17:21 | XMS_ITS | Encounter Summary ---
Author Organization [facility] Health Address [address] [facility] [place] [address] Care Team Providers Care Patch Washer Name Role Phone Unavailable Primary Care Provider Unavailabl e Encounter Details Date Type Department Care Team (Late st Contact Info) Description 10/08/2024 Lab Requisition [facility] - DermPath Lab [address] [facility], [place] [address] Joi Hatch MD [address] [facility] 3 [place] [address] Social History Tobacco Use Types Packs/Day Years Used Date Smoking Tobacco: Former Alcohol Use Standard Drinks/Week Comments Yes 0 (1 standard drink = 0.6 oz pur e alcohol) Sex and Gender Information Value Date Recorded Sex Assigned at Not on file Legal Sex Male 6:05 PM BULLET ASSEMBLY PRESS SETTER OPERATOR Gender Identity Not on file Sexual Orientation Not on file documented as of this encounter Plan of Treatment Not on file documented as of this encounter Procedures Procedure Name Priority Date/Time Associated Diagnosis Comments DERMATOPATHOLOGY Routine 10/08/2024 3:01 PM BULLET ASSEMBLY PRESS SETTER OPERATOR documented in this encounter Results * DERMATOPATHOLOGY (10/08/2024 3:01 PM BULLET ASSEMBLY PRESS SETTER OPERATOR) Case Report Dermatopathology Report Case: [id number] Authorizing Provider: Joi Hatch MD Collected: 10/08/2024 03:01 PM Ordering Location: [facility] - Received: 10/09/2024 12:48 PM DermPath Lab Pathologist: Brittny Oliva MD Specimens: A) - Skin, post neck B) - Skin, left arm 2:12 PM BULLET ASSEMBLY PRESS SETTER OPERATOR DERMATOPATHOLOGY LABORATORY Final Diagnosis Specimen A. SKIN, post neck: BASAL CELL CARCINOMA, NODULAR TYPE (C44.41) Specimen B. SKIN, left arm: HYPERPLASTIC (HYPERTROPHIC) ACTINIC KERATOSIS, PIGMENTED (L57.0) (see microscopic description) 2:12 PM [facility] DERMATOPATHOLOGY LABORATORY at 1412 BULLET ASSEMBLY PRESS SETTER OPERATOR Clinical History A: R/O BCC B: Nevus R/O MM 2:12 PM [facility] DERMATOPATHOLOGY LABORATORY Gross Description Specimen [...] measuring 11x9x1 mm. Jar 0. 2:12 PM [facility] DERMATOPATHOLOGY LABORATORY Microscopic Description Specimen [...] in some of the keratinocytes. 2:12 PM [facility] DERMATOPATHOLOGY LABORATORY Disclaimer An external and internal positive and negative controls are appropriate for the histochemical, immunohistochemical and immunofluorescence stain(s) in this case (if any), except where stated explicitly. The performance characteristics of the stain(s) cited in this report were developed and its performance characteristic determined by the Dermatopathology Laboratory at [facility], directed by Dr. Tiki Griffith. These tests need not be, and therefore are not, approved by the [place] Food and Drug Administration. The tests are used for clinical purposes. Billing Codes Specimen Charges Stain Charges 44064 29978 1 1 2:12 PM [facility] DERMATOPATHOLOGY LABORATORY Embedded Images 2:12 PM [facility] DERMATOPATHOLOGY LABORATORY Pathology/Cytology TISSUE SPECIMEN FROM SKIN / Unknown 10/08/2024 3:01 PM BULLET ASSEMBLY PRESS SETTER OPERATOR 10/09/2024 12:48 PM BULLET ASSEMBLY PRESS SETTER OPERATOR Miscellaneous samples (specimen) TISSUE SPECIMEN FROM SKIN / Unknown 10/08/2024 3:01 PM BULLET ASSEMBLY PRESS SETTER OPERATOR 10/09/2024 12:48 PM BULLET ASSEMBLY PRESS SETTER OPERATOR us Joi Hatch MD LAB - PATHOLOGY/CYTOLOGY ORD ERABLES Final Result DERMATOPATHOLOGY LABORATORY [facility] - Department of Dermatology [facility] Specialized Medicine [address] [place] [address], [address] [phone] documented in this encounter Visit Diagnoses Not on filedocumented in this encounter
--- OUTSIDE RECORDS SUMMARY | 2025-05-26 17:21 | XMS_ITS | Encounter Summary ---
Author Organization [facility] Health Address [address] [facility] [place] [address] Care Team Providers Care Air Cargo Agent Name Role Phone Unavailable Primary Care Provider Unavailabl e Encounter Details Date Type Department Care Team (Late st Contact Info) Description 07/09/2018 Lab Requisition [facility] Care DermPath Lab [address] [facility], [place] [address] Timbo Sanchez MD [address] [place] [address] Social History Tobacco Use Types Packs/Day Years Used Date Smoking Tobacco: Former Alcohol Use Standard Drinks/Week Comments Yes 0 (1 standard drink = 0.6 oz pur e alcohol) Sex and Gender Information Value Date Recorded Sex Assigned at Not on file Legal Sex Male 6:05 PM CONVEYOR CONSOLE OPERATOR Gender Identity Not on file Sexual Orientation Not on file documented as of this encounter Plan of Treatment Not on file documented as of this encounter Procedures Procedure Name Priority Date/Time Associated Diagnosis Comments DERMATOPATHOLOGY Routine 07/06/2018 12:0 0 AM CDT documented in this encounter Results * DERMATOPATHOLOGY (07/06/2018 12:00 AM CDT) Case Report Dermatopathology Report Case: [id number] Authorizing Provider: Timbo Sanchez MD Collected: 07/06/2018 [...] specimen consists of a shave biopsy measuring [id number]. Jar 0. 2:04 PM CDT DERMATOPATHOLOGY LABORATORY [...] characteristic determined by the Dermatopathology Laboratory at [facility]. These tests need not be, and therefore are not, approved by the [place] Food and Drug Administration. The tests are used for clinical purposes. Billing Codes Specimen Charges Stain Charges 56578 1 2:04 PM CDT DERMATOPATHOLOGY LABORATORY Embedded Images 2:04 PM CDT DERMATOPATHOLOGY LABORATORY Pathology/Cytolog y TISSUE SPECIMEN FROM SKIN / Unknown 07/06/2018 07/09/2018 12:05 PM CDT Timbo Sanchez MD LAB - PATHOLOGY/CYTOLOGY ORD ERABLES Final Result DERMATOPATHOLOGY LABORATORY [facility] - Department of Dermatology [address] [place] [address], 5th [place] [address], [facility] [phone] documented in this encounter Visit Diagnoses Not on filedocumented in this encounter
--- OUTSIDE RECORDS SUMMARY | 2025-05-26 17:21 | XMS_ITS | Clinical Summary ---
Author Organization [facility] Address [address] [place] [address] Care Team Providers Care Coach Mechanic Name Role Phone Unavailable Primary Care Provider Unavailabl e Source Comments [facility]non-owned Affiliates and Associated Physician Practices is amultiple site organization consisting of ambulatory clinics and hospital sitesin [place], [place], [place] and [place]. This disclosure is being madepursuant to the Care Everywhere program and may not contain all information available regarding this patient. Last updated 18.[facility] 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
--- OUTSIDE RECORDS SUMMARY | 2025-05-26 17:21 | XMS_ITS | Clinical Summary ---
Author Organization [facility] Address [address] [place] [address] Care Team Providers Care Plaster Tender Name Role Phone Unavailable Primary Care Provider [...] 3:40 PM CDT Height 177.8 cm (5' 10) 01/11/2012 3:40 PM CDT Body Mass Index 28.98 01/11/2012 3:40 PM CDT Plan of Treatment Health Maintenance Due Date Last Done Comments Hepatitis C 01/01/1966 DTaP, Tdap and Td Vaccines ( 1 - Tdap) 01/01/1967 Pneumococcal Vaccine: 50+ Ye ars (1 of 1 - PCV) 01/01/1998 Zoster Vaccines (1 of 2) 01/01/1998 RSV Immunization or 60+ Years (1 - 1-dose 75+ series) 01/01/2023 COVID-19 Vaccine ( - 2023-2 5 season) 2025 Meningococcal B Vaccine Aged Out No l onger eligible based on patient's age to complete this topic Meningococcal Vaccine Aged Out No luis armando temo eligible based on patient's age to complete this topic RSV Immunizations Under 20 Months Aged Out No longer eligible based on patient's age to complete this topic
== END 2025-05-26 14:25 | disposition home or self-care (01) ==
PROVIDERS: PCP Family Medicine
DX: M53.3 Sacrococcygeal disorders, not elsewhere classified (principal)
CPT/HCPCS: 72192